=== PATIENT | male | born 1995 | race Caucasian/White ===

== ENCOUNTER 2022-01-27 20:04 | Emergency (ER) | payer MEDICAID, SELFPAY ==
[2022-01-27 21:10] VITALS: BP 130/90; PULSE 88; RESP 20; TEMP 37; O2SAT 98
[2022-01-27 21:31] LABS: Add Urine Microscopic? NO; Appearance Urine Clear (Clear); Bilirubin Urine Negative (Negative); Blood Urine Negative (Negative); Color Urine Yellow (Yellow); Glucose Urine UA Negative (Negative); Ketones Urine Negative (Negative); Leukocyte Esterase Ur Negative LEU/UL (Negative); Nitrate Urine Negative (Negative); Protein Urine Negative (Negative); Specific Grav Ur 1.025 (1.010-1.020)
--- NOTE | 2022-01-27 22:46 | ED.ABDPAIN ---
HPI - Abdominal Pain General Chief Complaint: Urogenital-Male Stated Complaint: burning when peeing Time Seen by Provider: 01/27/22 20:10 Source: patient and RN notes reviewed Mode of arrival: ambulatory Limitations: no limitations History of Present Illness MD elicited complaint: other (dysuria) Pertinent past history: past UTI Onset (ago): day(s) (2) Pain Consistency: constant Location: other (urethra) Severity: mild Pain scale (0-10): 1 Radiation: none Migration to: no migration Exacerbating factors: nothing Relieving factors: nothing Associated symptoms: dysuria Related Data Home Medications Medication Instructions Recorded Confirmed No Home Medications 01/27/22 01/27/22 Allergies Allergy/AdvReac Type Severity Reaction Status Date / Time No Known Allergies Allergy Verified 01/27/22 21:15 Review of Systems Review of Systems: All systems reviewed & are unremarkable except as noted in HPI and below Constitutional: Constitutional: Reports no additional constitutional complaints Eyes: Eyes: Reports no additional eye complaints ENT: Reports system reviewed and no additional complaints, except as documented Cardiovascular: Cardiovascular: Reports no additional cardiovascular complaints Respiratory: Respiratory: Reports no additional respiratory complaints Gastrointestinal: Gastrointestinal: Reports no additional gastrointestinal complaints Musculoskeletal: Musculoskeletal: Reports no additional musculoskeletal complaints Integumentary/Breasts: Skin/Breast: Reports system reviewed and no additional complaints, except as docu Neurologic: Reports system reviewed and no additional complaints, except as documented Psychiatric: Psychiatric: Reports no additional psychiatric complaints Endocrine: Endocrine: Reports no additional endocrine complaints Hematologic/Lymphatic: Hematologic/Lymphatic: Reports no additional hematologic/lymphatic complaints Allergic/Immunologic: Allergic/Immunologic: Reports no additional allergic/immunologic complaints PMFSH Past Medical History Medical History (Updated 02/06/22 @ 14:33 by Cecilia Carroll MD) UTI (urinary tract infection) Exam Const: General: no acute distress and well nourished Nutritional Appearance: well nourished Orientation/consciousness: patient oriented x3 Limitations: no limitations HENMT: Head: normal to inspection Ears: external ears normal, TM's normal bilaterally and EAC's normal Face/Nose/Sinus: Normal external nose present, Normal nares present, normal facial exam and sinuses nontender Face and sinus: normal facial exam and sinuses nontender Mouth: Yes Normal oral and palatal mucosa present and Yes moist mucous membranes Teeth and gingiva: dentition normal Throat: posterior oropharynx normal Eyes: Conjunctivae: conjunctivae normal Pupils: Equal, round and reactive pupils present EOM: EOMs intact bilaterally Neck: Neck: normal visual inspection, no lymphadenopathy and no meningeal signs Chest: Chest palpation & inspection: normal inspection of the chest Resp: Effort & Inspection: normal respiratory effort Auscultation: clear to auscultation bilaterally Cardio: Rate: regular rate Rhythm: regular rhythm GI: GI Palp: Yes Soft to palpation and No Tenderness to palpation present (GI) Auscultation: normal bowel sounds : General: Yes bladder normal to palpation and Yes no CVA tenderness Back/Spine/Pelvis: Back: no CVA tenderness Skin: General skin exam: normal color Rashes: no rashes Wounds: no wounds Neuro: General: patient oriented x3, moves all extremities, no meningeal signs, no focal motor deficits and CN's II-XI intact bilaterally Cranial nerves: Yes Equal, round and reactive pupils present and Yes Nystagmus not present Speech: normal speech Gait exam (Neuro): Normal gait present Extrem: General: normal to inspection and no pedal edema Psych: Mental Status: mental status grossly normal Affect: normal affect
[2022-01-27 22:59] VITALS: BP 140/90; PULSE 80; RESP 20; TEMP 37.2; O2SAT 98
== END 2022-01-27 23:00 | disposition home or self-care (01) ==
PROVIDERS: Emergency Provider Emergency Medicine
DX: R30.0 Dysuria (principal)
CPT/HCPCS: 81003; 87491; 87591; 99283

== ENCOUNTER 2022-03-01 19:16 | Emergency (ER) | payer MEDICAID, SELFPAY ==
[2022-03-01 19:20] VITALS: BP 150/87; PULSE 79; RESP 18; TEMP 36.6; O2SAT 100
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
[2022-03-01 20:24] VITALS: BP 133/71; PULSE 82; RESP 18; TEMP 36.8; O2SAT 99
== END 2022-03-01 20:30 | disposition home or self-care (01) ==
PROVIDERS: Emergency Provider Emergency Medicine
DX: L40.9 Psoriasis, unspecified (principal)
CPT/HCPCS: 99283

== ENCOUNTER 2022-05-06 15:11 | Outpatient (CLI) | payer MEDICAID, SELFPAY ==
--- NOTE | ~2022-05-06 | CT_ITS ---
Non-contrast CT scan of the Abdomen and Pelvis Clinical indication: Left flank pain Technique: 2.5 mm axial scans were obtained through the abdomen and pelvis without intravenous or or al contrast. Dose reduction technique was used on this scan by utilizing automated exposure control a nd iterative reconstruction technique. The dose-length product (DLP) was 1113.05 mGy-cm. Findings: Images through the lung bases reveal no abnormalities. The liver, spleen, pancreas, gallbladder, right kidney, and adrenals appear normal. Left kidney is ab sent. There is no aortic aneurysm. There is no evidence of bowel obstruction. Images through the pelvis were performed. There is no evidence of ascites or lymphadenopathy. Urinary bladder unremarkable. Prostate gland is enlarged. Impression: Absent left kidney. Correlate for prior nephrectomy versus congenital absence of the kidney. Enlarged prostate gland. Reviewed, dictated and finalized at [facility]. Impression: Absent left kidney. Correlate for prior nephrectomy versus congenital absence o f the kidney. Enlarged prostate gland.
[2022-05-06 15:42] LABS: Basophils Absolute Auto 0.12 K/mm3 (0.00-0.10); Basophils Percent Auto 1.3 % (0.0-1.0); Eosinophils Absolute Auto 0.28 K/mm3 (0.02-0.50); Hematocrit 47.9 % (40.0-54.0); Immature Granulocyte Absolute 0.36 K/mm3 (0.00-0.00); Immature Granulocyte Percent A 3.9 % (0.0-0.0); Lymphocytes Absolute Auto 2.06 K/mm3 (1.10-4.50); Lymphocytes Percent Auto 22.1 % (18.0-42.0); Mean Corpuscular HGB Conc 33.4 g/dL (32.0-36.0); Mean Corpuscular Hemoglobin 31.1 pg (27.0-31.0); Mean Corpuscular Volume 93.2 fL (78.0-102.0); Mean Platelet Volume 9.3 fl (8.7-11.0); Monocytes Absolute Auto 0.55 K/mm3 (0.10-0.90); Monocytes Percent Auto 5.9 % (2.0-11.0); Neutrophils Absolute Auto 5.9 K/mm3 (1.7-7.2); Neutrophils Percent Auto 63.8 % (50.0-70.0); Platelet Count Result 320 K/mm3 (150-420); Red Blood Count 5.14 M/mm3 (4.70-6.10); Red Cell Distribution Width 12.4 % (11.6-14.4); White Blood Count 9.3 K/mm3 (4.8-10.8)
[2022-05-06 16:13] LABS: Alanine Aminotransferase 62 U/L (16-63); Albumin Level 3.7 g/dL (3.4-5.0); Alkaline Phosphatase 67 U/L (46-116); Anion Gap 10 mmol/L (8-16); Aspartate Amino Transferase 29 U/L (15-37); Bilirubin,Total 0.7 mg/dL (0.00-1.00); Blood Urea Nitrogen 15 mg/dL (7-18); Calcium 8.6 mg/dL (8.5-10.1); Carbon Dioxide 25 mmol/L (21-32); Chloride 104 mmol/L (98-108); Estimated Glomerular Filt Rate > 60; Glucose 84 mg/dL (70-99); Osmolality Calculated 287 mOsm/kg (285-295); Potassium 4.6 mmol/L (3.5-5.1); Prostate Specific Antigen 0.9 ng/mL (< OR = 4.0); Sodium 139 mmol/L (136-145); Thyroid Stimulating Hormone 0.89 uIU/mL (0.36-3.74); Total Protein 7.1 g/dL (6.4-8.2)
[2022-05-10 13:50] LABS: Sex Hormone Binding Globulin 6 nmol/L (10-50)
[2022-05-13 05:49] LABS: FSH <0.7 mIU/mL (1.6-8.0); LH <0.2 mIU/mL (1.5-9.3)
[2022-05-13 22:52] LABS: Estradiol, Ultrasensitive 38 pg/mL (< OR = 29)
[2022-05-14 12:07] LABS: Testosterone Free 305.8 pg/mL (35.0-155.0); Testosterone Total 1092 ng/dL (250-1100)
== END 2022-05-06 15:12 | disposition home or self-care (01) ==
LOC: CHSIMG 15:12
PROVIDERS: Nurse Practitioner; PCP Family Medicine; Visit Provider Family Medicine
DX: F55.3 Abuse of steroids or hormones (principal); R03.0 Elevated blood-pressure reading, without diagnosis of hypertension; Z90.5 Acquired absence of kidney; N40.0 Benign prostatic hyperplasia without lower urinary tract symptoms
CPT/HCPCS: 36415; 74176; 80053; 82670; 83001; 83002; 83735; 84153; 84270; 84402; 84403; 84443; 85025

== ENCOUNTER 2022-10-20 23:05 | Emergency (ER) | payer OTHER, SELFPAY ==
--- NOTE | ~2022-10-20 | CT_ITS ---
Clinical Indication: Trauma CT Scan of the Chest with and without Contrast: Technique: Contiguous sections were acquired throughout the chest prior to and following intravenous administration of 75 cc of Omnipaque 350. Dose reduction technique was used on this scan by utilizing automated exposure control and iterative reconstruction technique. The dose-length product (DLP) was 632.74 mGy-cm. Findings: There is no evidence of any significant mediastinal, hilar or axillary lymphadenopathy. Mediastinal v ascular structures appear unremarkable. There is no evidence of pleural or pericardial effusion. The lungs are clear. No pulmonary nodules or infiltrates are noted. Images through the upper abdomen reveal nonvisualization of left kidney. Impression: No significant abnormality seen in the chest. Nonvisualization of left kidney. This could be due to congenital absence, prior resection, or ectopic /pelvic kidney. Reviewed, dictated and finalized at [facility]. Impression: No significant abnormality seen in the chest. Nonvisualization of left kidney. This could be due to congenital absence, prior resection, or ectopic/pelvic kidney.
[2022-10-20 23:05] VITALS: BP 157/98; PULSE 87; RESP 18; TEMP 36.6; O2SAT 99
[2022-10-20 23:10] VITALS: PULSE 86
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
[2022-10-20 23:40] LABS: Basophils Absolute Auto 0.08 K/mm3 (0.00-0.10); Basophils Percent Auto 0.8 % (0.0-1.0); Eosinophils Absolute Auto 0.32 K/mm3 (0.02-0.50); Eosinophils Percent Auto 3.1 % (1.0-6.0); Hematocrit 44.2 % (40.0-54.0); Hemoglobin 15.4 g/dL (14.0-18.0); Immature Granulocyte Absolute 0.05 K/mm3 (0.00-0.00); Immature Granulocyte Percent A 0.5 % (0.0-0.0); Lymphocytes Absolute Auto 2.61 K/mm3 (1.10-4.50); Lymphocytes Percent Auto 25.5 % (18.0-42.0); Mean Corpuscular HGB Conc 34.8 g/dL (32.0-36.0); Mean Corpuscular Hemoglobin 31.3 pg (27.0-31.0); Mean Corpuscular Volume 89.8 fL (78.0-102.0); Mean Platelet Volume 9.2 fl (8.7-11.0); Monocytes Absolute Auto 0.42 K/mm3 (0.10-0.90); Monocytes Percent Auto 4.1 % (2.0-11.0); Neutrophils Absolute Auto 6.8 K/mm3 (1.7-7.2); Platelet Count Result 213 K/mm3 (150-420); Red Blood Count 4.92 M/mm3 (4.70-6.10); Red Cell Distribution Width 11.7 % (11.6-14.4); White Blood Count 10.2 K/mm3 (4.8-10.8)
--- NOTE | 2022-10-20 23:43 | PC.NURSE ---
2307 RELEASE OF INFO COLLECTED, CALLED [facility] EMERGENCY DEPART[facility] TO GET TEST PERFORMED, PATIENT ONLY ALLOWED AN IV & CXR. NURSE STATED PATIENT & WAS VERBAL ABUSIVE TO STAFF AND LEFT AMA. THEIR COMPUTERS ARE DOWN UNABLE TO SEND CXR RESULTS. AWARE, NEW ORDERS RECEIVED
[2022-10-20 23:46] VITALS: BP 131/75; PULSE 78; RESP 18; O2SAT 98
[2022-10-20 23:50] VITALS: PULSE 72
[2022-10-20 23:50] LABS: Anion Gap 9 mmol/L (8-16); Blood Urea Nitrogen 19 mg/dL (7-18); Calcium 8.6 mg/dL (8.5-10.1); Carbon Dioxide 25 mmol/L (21-32); Chloride 107 mmol/L (98-108); Estimated CRCL calculation 112 ml/min; Estimated Glomerular Filt Rate > 60; Glucose 123 mg/dL (70-99); Osmolality Calculated 295 mOsm/kg (285-295); Potassium 3.6 mmol/L (3.5-5.1); Sodium 141 mmol/L (136-145)
[2022-10-21 00:50] VITALS: BP 132/72; PULSE 76; RESP 16; TEMP 37; O2SAT 97
[2022-10-21 01:08] VITALS: PULSE 72
[2022-10-21 01:10] VITALS: BP 130/70; PULSE 70; RESP 16; TEMP 36.6; O2SAT 98
== END 2022-10-21 01:20 | disposition home or self-care (01) ==
PROVIDERS: Emergency Provider Emergency Medicine; PCP Family Medicine
DX: S20.212D Contusion of left front wall of thorax, subsequent encounter (principal); F17.210 Nicotine dependence, cigarettes, uncomplicated; V48.3XXD Unspecified car occupant injured in noncollision transport accident in nontraffic accident, subsequent encounter
CPT/HCPCS: 36415; 71270; 80048; 85025; 99284; Q9967

== ENCOUNTER 2022-12-22 00:30 | Emergency (ER) | payer OTHER, SELFPAY ==
[2022-12-22 00:45] VITALS: BP 143/89; PULSE 89; RESP 20; TEMP 36.8; O2SAT 99
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
[2022-12-22] MEDS: ORPHENADRINE CITRATE 30 MG/ML 2 ML VIAL 60 MG IM (01:10)
[2022-12-22] MEDS: KETOROLAC (*BKC) 60 MG/2 ML VIAL IM (01:10)
[2022-12-22] MEDS: methocarbamoL 500 MG TABLET 1000 MG PO (01:11)
[2022-12-22] MEDS: diazePAM (*CRX) 5 MG TABLET PO (01:12)
[2022-12-22] MEDS: ASPIRIN 325 MG ENTERIC TABLET 650 MG PO (01:12)
== END 2022-12-22 01:40 | disposition home or self-care (01) ==
PROVIDERS: Emergency Provider Emergency Medicine; PCP Family Medicine
DX: M12.562 Traumatic arthropathy, left knee (principal); S86.912S Strain of unspecified muscle(s) and tendon(s) at lower leg level, left leg, sequela; F17.210 Nicotine dependence, cigarettes, uncomplicated; Z79.891 Long term (current) use of opiate analgesic; Z79.899 Other long term (current) drug therapy; Z79.01 Long term (current) use of anticoagulants; V89.2XXS Person injured in unspecified motor-vehicle accident, traffic, sequela
CPT/HCPCS: 96372; 99284; A9270; J1885; J2360

== ENCOUNTER 2023-03-11 07:04 | Outpatient (CLI) | payer OTHER, SELFPAY ==
--- NOTE | ~2023-03-11 | MR_ITS ---
EXAMINATION: MR knee LT wo con DATE: 03/11/2023 08:22 INDICATION: Left knee dislocation TECHNIQUE: Magnetic resonance imaging (MRI) of the left knee was performed without intravenous contra st. Sequences included coronal PD-weighted FSE, coronal PD-weighted FS FSE, sagittal T2-weighted FSE , sagittal PD-weighted FS FSE and axial PD weighted fat saturated FSE. COMPARISON: None. FINDINGS: Medial compartment: Complete avulsion of the posterior root of the medial meniscus. There is an additional full-thickness radial tear at the body the medial meniscus. The tear margins at the medial meniscus are relatively widely which suggests possibility of a displaced meniscal fragment comprising the interveni ng meniscal tissue. There is marrow edema surrounding a nondisplaced impaction fracture involving the posterior margin of the medial tibial plateau. There is some fissuring of the overlying articular ca rtilage. Remaining articular cartilage the medial compartment is normal. Articular cartilage is corinne l. Lateral compartment: Lateral meniscus is normal. Small partial-thickness chondral fissuring without degenerative subchondr al changes along the posterior margin of the lateral tibial plateau. Articular cartilage is otherwise normal. Patellofemoral compartment: Articular cartilage is normal. Ligaments and tendons: Complete tear of the anterior cruciate ligament with small cyclops lesion with torn and frayed appear ing ligament material reflected anteriorly from the footplate of the anterior margin of the intercond ylar notch. At least high-grade partial tear at the central portion of the posterior cruciate ligamen t. Additional high-grade partial or more likely complete tear of the medial collateral ligament. The fibular collateral ligament remains normal. The extensor mechanism is normal. The visualized medial a nd lateral hamstring tendons as well as the iliotibial band are normal. Fluid: Moderate-sized left knee joint effusion. There is a 1.7 x 1.3 x 0.9 cm loose body at the lateral gutt er of the suprapatellar pouch, potentially a meniscal fragment. Osseous/other: There is additional marrow edema in the anterior tibia underlying region of the anterior root of the lateral meniscus without evident fracture line which suggests possibility of a bone contusion. This a lso immediately distal to the cyclops lesion and could also represent stress reaction related to alte red weight distribution secondary to the displaced ligament tissue. No pathologic marrow replacing pr ocess. Popliteus tendon is normal with some feathery edema along the popliteus muscle belly consisten t with low-grade strain with no discrete tear defect appreciated. IMPRESSION: 1. Complete anterior cruciate ligament tear and high-grade partial or more likely complete tears of t he posterior cruciate ligament and medial collateral ligament. 2. Full-thickness radial tears at the body and posterior root of the medial meniscus loose body is se en at the lateral gutter of the suprapatellar pouch which could represent a related displaced menisca l fragment. 3. Small impaction fracture with fissuring of the overlying articular cartilage along the posterior r im of the medial tibial plateau. 4. Marrow edema without evident fracture line consistent with bone contusion versus stress reaction r elated to altered weight distribution in the proximal tibia underlying the region of the anterior jaylen t of the lateral meniscus. 5. Low-grade popliteus muscle strain. 6. Moderate-sized left knee joint effusion. Reviewed, dictated and finalized at location [facility]. STANT LIBRARIAN IMPRESSION: 1. Complete anterior cruciate ligament tear and high-grade partial or more like ly complete tears of the posterior cruciate ligament and medial collateral liga ment
--- NOTE | ~2023-03-11 | MR_ITS ---
EXAMINATION: MR thoracic spine wo con DATE: 03/11/2023 08:22 INDICATION: T9 vertebral fracture. TECHNIQUE: Magnetic resonance imaging (MRI) of the thoracic spine was performed without intravenous c ontrast. COMPARISON: Chest CT 10/20/2022 FINDINGS: There is 5 degrees dextrocurvature of thoracic spine. There is kyphosis of thoracic spine. There is mild chronic anterior wedging of T2. There is mild chronic anterior wedging of T5-T9 vertebr al bodies associated with Schmorl's nodes. There is mildly decreased disc height at T2-T3 and from T5 -T6 through T9-T10. There is multilevel mild facet joint osteoarthritis. No neural foraminal stenosis . The discs do not extend beyond the endplate margins. No central canal stenosis. The spinal cord sig nal intensity is normal. IMPRESSION: 1. Scheuermann disease. Reviewed, dictated and finalized at location [facility]. A/C TECHNICIAN IMPRESSION: 1. Scheuermann disease.
== END 2023-03-11 07:05 | disposition home or self-care (01) ==
LOC: CHSIMG 07:07
PROVIDERS: PCP Family Medicine
DX: S83.105A Unspecified dislocation of left knee, initial encounter (principal); S22.079A Unspecified fracture of T9-T10 vertebra, initial encounter for closed fracture; M42.04 Juvenile osteochondrosis of spine, thoracic region; S83.512A Sprain of anterior cruciate ligament of left knee, initial encounter; S83.242A Other tear of medial meniscus, current injury, left knee, initial encounter; S82.142A Displaced bicondylar fracture of left tibia, initial encounter for closed fracture; M79.89 Other specified soft tissue disorders; M25.462 Effusion, left knee
CPT/HCPCS: 72146; 73721